=== PATIENT | male | born 1960 | race Caucasian/White ===

== ENCOUNTER → 2017-12-03 | Outpatient (CLI) | payer MEDICARE ==
--- NOTE | 2017-12-03 14:05 | PCVCIMAG ---
APPROVED REPORT Study performed: 12/03/2017 12:52:12 EXAM: Comprehensive 2D, Doppler, and color-flow Echocardiogram Patient Location: Echo lab Status: routine BSA: 1.86 HR: 65 bpmBP: 140/90 mmHg Rhythm: NSR Other Information Study Quality: Adequate Risk Factors: Cardiac Risk Factors: HTN, Hyperlipidemia Indications Pacemaker Alcoholic Cardiomyopathy 2D Dimensions IVSd: 8.90 (7-11mm)LVOT Diam: 20.00 (18-24mm) LVDd: 62.31 mm PWd: 10.45 (7-11mm)Ascending Ao: 27.45 (22-36mm) LVDs: 49.54 (25-40mm) Left Atrium: 38.39 (27-40mm) Aortic Root: 28.82 mm LV Single Plane 4CH: 28.68 % LV Single Plane 2CH: 38.00 % Biplane EF: 36.3 % Volumes Left Atrial Volume (Systole) Single Plane 4CH: 39.70 mLSingle Plane 2CH: 55.68 mL LA ESV Index: 28.00 mL/m2 Aortic Valve AoV Peak Hunter.: 1.85 m/s AO Peak Gr.: 13.68 mmHgLVOT Max P.40 mmHg LVOT Max V: 1.05 m/s MALIK Vmax: 1.76 cm2 Mitral Valve E/A Ratio: 0.7 MV Decel. Time: 255.81 ms MV E Max Hunter.: 0.66 m/s MV A Hunter.: 1.00 m/s IVRT: 79.58 ms TDI E/Lateral E': 22.00E/Medial E': 22.00 Medial E' Hunter.: 0.03 m/s Lateral E' Hunter.: 0.03 m/s Pulmonary Valve PV Peak Hunter.: 0.97 m/sPV Peak Gr.: 3.78 mmHg Pulmonary Vein P Vein S: 0.35 m/sP Vein A: 0.26 m/s P Vein D: 0.30 m/sP Vein A Dur.: 96.9 msec P Vein S/D Ratio: 1.17 Tricuspid Valve TR Peak Hunter.: 1.97 m/sRAP Estimate: 7.00 mmHg TR Peak Gr.: 15.47 mmHg PA Pressure: 23.00 mmHg Left Ventricle Left ventricle is dilated. Global hypokinesis. There is normal left ventricular wall thickness. Left ventricular systolic function is moderate to severely decreased. LVEF is 30-35%. Grade I - abnormal relaxation pattern. Right Ventricle The right ventricle is normal size. The right ventricular systolic function is normal. Atria The left atrium size is normal. The right atrium size is normal. Aortic Valve The aortic valve is normal in structure. No aortic regurgitation is present. There is no aortic valvular stenosis. Mitral Valve The mitral valve is normal in structure. Mild mitral regurgitation. No evidence of mitral valve stenosis. Tricuspid Valve The tricuspid valve is normal in structure. Trace tricuspid regurgitation. Pulmonary artery pressure 25 mmHg. Pulmonic Valve The pulmonary valve is normal in structure. There is no pulmonic valvular regurgitation. Great Vessels The aortic root is normal in size. IVC is normal in size and collapses >50% with inspiration. Pericardium There is no pericardial effusion. <Conclusion> Left ventricular systolic function is moderate to severely decreased. LVEF is 30-35%. Mild diastolic dysfunction The aortic valve is normal in structure. No aortic regurgitation or stenosis The mitral valve is normal in structure. Mild mitral regurgitation. Trace tricuspid regurgitation. Pulmonary artery pressure 25 mmHg. There is no pericardial effusion.
== END | disposition home or self-care (01) ==
LOC: PCVCIMAG 13:06
PROVIDERS: ATTEND Internal Medicine
DX: I05.1 Rheumatic mitral insufficiency (principal); I42.6 Alcoholic cardiomyopathy; I11.0 Hypertensive heart disease with heart failure; I50.22 Chronic systolic (congestive) heart failure; E78.5 Hyperlipidemia, unspecified; Z95.810 Presence of automatic (implantable) cardiac defibrillator; Z79.899 Other long term (current) drug therapy
CPT/HCPCS: 93005; 93282; 93306; G0463

== ENCOUNTER → 2018-08-19 | Outpatient (CLI) | payer MEDICARE, MEDICAID | END | disposition home or self-care (01) | LOC: PCVCCLINIC 14:30 | PROVIDERS: ATTEND Internal Medicine | DX: I11.0 Hypertensive heart disease with heart failure (principal); I50.22 Chronic systolic (congestive) heart failure; E78.5 Hyperlipidemia, unspecified; I42.6 Alcoholic cardiomyopathy; Z95.810 Presence of automatic (implantable) cardiac defibrillator; Z79.82 Long term (current) use of aspirin | CPT/HCPCS: 36415; 80061; 93005; 93284; G0463 ==